=== PATIENT | female | born 1965 | race Caucasian/White ===

== ENCOUNTER 2021-02-14 12:18 | Emergency (ER) | payer OTHER ==
[2021-02-14] MEDS ORDERED: ONDANSETRON 4 MG (ODT) TAB ONE (13:15)
[2021-02-14] MEDS ORDERED: MORPHINE 4 MG/ML SYR ONE (13:18)
--- NOTE | 2021-02-14 14:00 | RAD REPORT ---
EXAM DESCRIPTION: RAD - Shoulder Right 2 View - 02/14/2021 1:48 pm CLINICAL HISTORY: PAIN COMPARISON: No comparisons FINDINGS: Minimally displaced fracture of the greater tuberosity of the humeral head is noted. No di slocation is evident.
--- NOTE | 2021-02-14 14:27 | EDPHYS ---
Physician Documentation [facility] Name: Joan Hoyt Age: 55 yrs Sex: Female : 1965 Arrival Date: 02/14/2021 Time: 12:20 Bed 25 Private MD: ED Physician Ubaldo Miles HPI: 02/14 13:09 This 55 yrs old Female presents to ER via Wheelchair with complaints of Fall Injury, pm1 Shoulder Injury, Vomiting. 13:09 Details of fall: The patient fell from an upright position, while standing. Onset: The pm1 symptoms/episode began/occurred just prior to arrival. Associated injuries: The patient sustained anterior aspect of right shoulder. Severity of symptoms: in the emergency department the symptoms are unchanged. 13:12 The patient has not experienced similar symptoms in the past. The patient has not pm1 recently seen a physician. Patient was pulled to the ground by her dog when she grabbed its leash as the dog ran off. Patient landed on her right shoulder. Denies head injury, headache, neck pain, LOC. Patient also complaining of nausea and vomiting due to the pain. Historical: - Allergies: 12:45 No Known Allergies; ap3 - Home Meds: 12:45 None [Active]; ap3 - PMHx: 12:45 None; ap3 - PSHx: 12:45 None; ap3 - Immunization history:: Client reports having NOT received the Covid vaccine. - Social history:: Smoking status: Patient denies any tobacco usage or history of. Patient uses alcohol, occasionally. ROS: 13:12 Constitutional: Negative for fever, chills, and weight loss, Cardiovascular: Negative pm1 for chest pain, palpitations, and edema, Respiratory: Negative for shortness of breath, cough, wheezing, and pleuritic chest pain. 13:12 Skin: Negative for injury, rash, and discoloration, Neuro: Negative for headache, weakness, numbness, tingling, and seizure. 13:12 Abdomen/GI: Positive for nausea and vomiting, Negative for abdominal pain, diarrhea. 13:12 MS/extremity: Positive for pain, of the right shoulder, Negative for decreased range of motion, deformity. 13:12 All other systems are negative. Exam: 13:12 Constitutional: This is a well developed, well nourished patient who is awake, alert, pm1 and in no acute distress. Head/Face: Normocephalic, atraumatic. 13:12 Back: No spinal tenderness. No costovertebral tenderness. Full range of motion. Skin: Warm, dry with normal turgor. Normal color with no rashes, no lesions, and no evidence of cellulitis. 13:12 Eyes: Exam is negative for acute changes, Extraocular movements: no acute changes. 13:12 ENT: Exam is negative for acute changes, Mouth: no acute changes, Lips: normal, moist, Oral mucosa: normal, pink and intact, moist. 13:12 Cardiovascular: Exam negative for acute changes, Rate: normal, Rhythm: regular, Pulses: no pulse deficits are appreciated. 13:12 Respiratory: Exam negative for acute changes, respiratory distress, shortness of breath. 13:12 Musculoskeletal/extremity: Extremities: grossly normal except: noted in the lateral aspect of right shoulder: Circulation is intact in all extremities. the right hand Sensation intact. 13:12 Neuro: Exam negative for acute changes, Orientation: is normal, Motor: is normal, moves all fours, Sensation: no obvious gross deficits. Vital Signs: 12:47 BP 104 / 86; Pulse 68; Temp 97.6(O); Pulse Ox 99% on R/A; Weight 56.7 kg; Height 5 ft. ap3 4 in. (162.56 cm); Pain 8/10; 12:47 Body Mass Index 21.46 (56.70 kg, 162.56 cm) ap3 MDM: 13:01 Patient medically screened. pm1 14:22 Data reviewed: vital signs. Data interpreted: Pulse oximetry: on room air is 99 %. pm1 Interpretation: normal. Counseling: I had a detailed discussion with the patient and/or guardian regarding: the historical points, exam findings, and any diagnostic results supporting the discharge/admit diagnosis, radiology results, the need for outpatient follow up, a orthopedic surgeon, to return to the emergency department if symptoms worsen or persist or if there are any questions or concerns that arise at home. 14:44 ED course: Patient reports continued nausea with dizziness. Will obtain CT head . pm1 02/14 13:02 Order name: Shoulder Right (2 View) XRAY; Complete Time: 14:17 pm1 02/14 14:43 Order name: CT Head Brain wo Cont; Complete Time: 15:19 pm1 02/14 14:17 Order name: Sling; Complete Time: 14:19 pm1 Administered Medications: 13:11 Not Given (Physician Discretion): Zofran (Ondansetron) 4 mg IVP once; over 2 minutes pm1 13:11 Not Given (Physician Discretion): morphine 4 mg IVP once; RASS on ADMIN: Combtv4, Very pm1 Agttd3, Agttd2, Rstlss1, AlertClm0, Drwsy-1, Lt Sdtn-2, Mod Sdtn-3, Dp Sdtn-4, UnArsble-5 13:20 Drug: morphine 4 mg Route: IM; Site: left deltoid; [facility] 13:20 Drug: Zofran (Ondansetron) 4 mg Route: PO; 5 15:37 Drug: Phenergan (promethazine) 25 mg Route: IM; Site: left deltoid; [facility] Disposition: 02/15 12:57 Co-signature as Attending Physician, Ubaldo Miles MD I agree with the assessment and jackie plan of care. Disposition Summary: 02/14/21 14:26 Discharge Ordered Location: Home pm1 Problem: new pm1 Symptoms: have improved pm1 Condition: Stable pm1 Diagnosis - Fracture of upper end of humerus - minimally displaced fracture of the greater pm1 tuberosity of the humeral head Followup: pm1 - With: Emergency Department - When: As needed - Reason: Worsening of condition Followup: pm1 - With: Private Physician - When: 2 - 3 days - Reason: Recheck today's complaints, Continuance of care, Re-evaluation by your physician Discharge Instructions: - Discharge Summary Sheet pm1 - Humerus Fracture Treated With Immobilization pm1 - How to Use a Sling pm1 Forms: - Medication Reconciliation Form pm1 - Thank You Letter pm1 - Antibiotic Education pm1 - Prescription Opioid Use pm1 Prescriptions: - ondansetron 4 mg Oral tablet,disintegrating - place 1 tablet by TRANSLINGUAL route every 8 hours As needed; 15 tablet; pm1 Refills: 0, Product Selection Permitted - Tylenol-Codeine #3 300 mg-30 mg Oral - take 2 tablet by ORAL route every 6 hours As needed; 20 tablet; Refills: 0, pm1 Product Selection Permitted - promethazine 25 mg Oral Tablet - take 1 tablet by ORAL route every 6 hours As needed; 20 tablet; Refills: 0, pm1 Product Selection Permitted Signatures: Dispatcher [employer] EDUbaldo Cuba MD MD cha Marinas, Patrick, RUSS CONSULTING TECHNICAL DIRECTOR pm1 Eve Vanegas RN RN ap3 Paradise Gillis RN RN jh5 Corrections: (The following items were deleted from the chart) 02/14 12:46 12:45 PMHx: None; ap3 ap3 13:20 13:02 IV Saline Lock ordered. pm1 jh5
--- NOTE | 2021-02-14 14:27 | ER ---
Nurse's Notes [facility] Name: Joan Hoyt Age: 55 yrs Sex: Female : 1965 Arrival Date: 02/14/2021 Time: 12:20 Bed 25 Private MD: Diagnosis: Fracture of upper end of humerus-minimally displaced fracture of the greater tuberosity of the humeral head Presentation: 02/14 12:43 Chief complaint: Patient states: [place] ap3 She states the dog pulled on the leash, and she fell flat, landing on her right shoulder. Patient denies hitting head or LOC. Patients spouse reports the nausea/vomiting began approx 30 mins after fall. Coronavirus screen: At this time, the client does not indicate any symptoms associated with coronavirus-19. Ebola Screen: No symptoms or risks identified at this time. Initial Sepsis Screen: Does the patient meet any 2 criteria? No. Patient's initial sepsis screen is negative. Does the patient have a suspected source of infection? No. Patient's initial sepsis screen is negative. Risk Assessment: Do you want to hurt yourself or someone else? Patient reports no desire to harm self or others. Onset of symptoms was February 14, 2021. 12:43 Method Of Arrival: Wheelchair ap3 12:47 Acuity: SOURAV 3 ap3 Triage Assessment: 12:46 General: Appears uncomfortable, Behavior is actively vomiting. Pain: Complains of pain ap3 in right shoulder. Pain: Pain currently is 8 out of 10 on a pain scale. Pain began suddenly. Neuro: Level of Consciousness is awake, alert, obeys commands, Oriented to person, place, time, situation, Appropriate for age Speech is normal. Cardiovascular: Patient's skin is warm and dry. Respiratory: Airway is patent Respiratory effort is even, unlabored, Respiratory pattern is regular, symmetrical. GI: Pt is actively vomiting clear fluid. Historical: - Allergies: 12:45 No Known Allergies; ap3 - Home Meds: 12:45 None [Active]; ap3 - PMHx: 12:45 None; ap3 - PSHx: 12:45 None; ap3 - Immunization history:: Client reports having NOT received the Covid vaccine. - Social history:: Smoking status: Patient denies any tobacco usage or history of. Patient uses alcohol, occasionally. Screenin:49 Abuse screen: Denies threats or abuse. Nutritional screening: No deficits noted. ap3 Tuberculosis screening: No symptoms or risk factors identified. 12:59 Fall Risk Fall in past 12 months (25 points). jh5 Primary Survey: 12:58 NO uncontrolled hemorrhage observed. Breathing/Chest: Respiratory pattern: regular, jh5 Respiratory effort: spontaneous, Breath sounds: clear, bilaterally. Chest inspection: symmetrical rise and fall of the chest. Circulation: Pulses: palpable right radial artery, right dorsalis pedis artery, left radial artery and left dorsalis pedis artery. Disability Alert. Exposure/Environment: All clothing and personal items were removed. Forensic evidence collection is not deemed to be indicated at this time. Items placed in patient belonging bag. Reassessment Breathing/Chest Respiratory pattern Regular Respiratory effort Spontaneous Breath sounds Clear Chest inspection Symmetrical Circulation Pulses Palpable Color [place] Temperature Warm Disability Alert. Assessment: 12:59 General: Appears uncomfortable, Behavior is calm, cooperative, appropriate for age. jh5 Pain:. 13:21 Reassessment: Pt found to be putting fingers in her mouth to make herself vomit. Pt jh5 loudly groaning and dry heaving with nothing coming up. Pt offers to let RN stick the arm she is here from the injury so she can have an IV. Pt has moved right "injured" arm a couple of times, nothing above the head though. Pt educated that xrays will be completed shortly and that will tell us our next steps in her care. Vital Signs: 12:47 BP 104 / 86; Pulse 68; Temp 97.6(O); Pulse Ox 99% on R/A; Weight 56.7 kg; Height 5 ft. ap3 4 in. (162.56 cm); Pain 8/10; 12:47 Body Mass Index 21.46 (56.70 kg, 162.56 cm) ap3 ED Course: 12:20 Patient arrived in ED. mr 12:49 Triage completed. ap3 12:49 Arm band placed on left wrist. ap3 12:49 Patient has correct armband on for positive identification. Adult w/ patient. Pulse ox ap3 on. NIBP on. 12:51 Paradise Gillis RN is Primary Nurse. jh5 12:57 Robert Gibson NP is PHCP. pm1 12:57 Ubaldo Miles MD is Attending Physician. pm1 13:48 Shoulder Right (2 View) XRAY In Process Unspecified. EDMS 14:31 Primary Nurse role handed off by Paradise Gillis, RN 5 15:03 CT Head Brain wo Cont In Process Unspecified. EDMS 15:07 Paradise Gillis, MARSHA is Primary Nurse. [facility] Administered Medications: 13:11 Not Given (Physician Discretion): Zofran (Ondansetron) 4 mg IVP once; over 2 minutes pm1 13:11 Not Given (Physician Discretion): morphine 4 mg IVP once; RASS on ADMIN: Combtv4, Very pm1 Agttd3, Agttd2, Rstlss1, AlertClm0, Drwsy-1, Lt Sdtn-2, Mod Sdtn-3, Dp Sdtn-4, UnArsble-5 13:20 Drug: morphine 4 mg Route: IM; Site: left deltoid; [facility] 13:20 Drug: Zofran (Ondansetron) 4 mg Route: PO; [facility] 15:37 Drug: Phenergan (promethazine) 25 mg Route: IM; Site: left deltoid; [facility] Outcome: 14:26 Discharge ordered by MD. pm1 16:17 Patient left the ED. [facility] Signatures: Dispatcher [employer] [facility] Radha AmbrizRobert, NATURALIST NATURALIST pm1 Kamar Leung RN RN sr5 Eve Vanegas RN RN ap3 Paradise Gillis, RN RN jh5 Corrections: (The following items were deleted from the chart) 12:46 12:45 PMHx: None; ap3 ap3 12:49 12:43 Chief complaint: Patient states: [place] Patients spouse reports the nausea/vomiting began approx 30 mins after fall ap3
--- NOTE | 2021-02-14 15:14 | RAD REPORT ---
EXAM DESCRIPTION: CT - Head Brain Wo Cont - 02/14/2021 3:03 pm CLINICAL HISTORY: Nausea;Dizziness Headache, drowsiness COMPARISON: No comparisons TECHNIQUE: All CT scans are performed using dose optimization technique as appropriate and may inclu de automated exposure control or mA/KV adjustment according to patient size. FINDINGS: No intracranial hemorrhage, hydrocephalus or extra-axial fluid collection.No areas of brai n edema or evidence of midline shift. The paranasal sinuses and mastoids are clear. The calvarium is intact. IMPRESSION: No acute intracranial abnormality.
[2021-02-14] MEDS ORDERED: PROMETHAZINE INJ 25 MG/ML AMP ONE (15:32)
[2021-02-14 16:24] VITALS: BP 104/86; TEMP 97.6; O2SAT 99
== END 2021-02-14 16:17 | disposition home or self-care (01) ==
LOC: ER 12:18
DX: S42.251A Displaced fracture of greater tuberosity of right humerus, initial encounter for closed fracture (principal); W18.30XA Fall on same level, unspecified, initial encounter; Y93.K1 Activity, walking an animal
CPT/HCPCS: 70450; 73030; 96372; 99283; J2550